=== PATIENT | female | born 1950 | race Caucasian/White ===

== ENCOUNTER → 2016-10-30 | Outpatient (CLI) | payer OTHER, MEDICARE ==
[~2016-10-30] MED LIST: ALBU4TAB10 PO; ASPI81TA28 PO; ATOR-22 PO; CALCTAB7 PO
--- NOTE | 2016-10-30 16:20 | DIAGNOSTIC IMAGING REPORT ---
LYMPHOSCINTIGRAPHY CLINICAL HISTORY: Left breast cancer. PROCEDURE: Using standard sterile technique, 4 intradermal injections medial to the nipple and one deep injection of 0.5 mCi of Lymphoseek was placed in the left breast. The patient tolerated the procedure well. There were no immediate complications. The patient will undergo surgery tomorrow at [facility]. No imaging was obtained at the referring physician's request. IMPRESSION: Injection of 0.5 mCi of Lymphoseek in the left breast. Electronically signed by: Vikas Guzman M.D. 10/30/2016 4:19 PM Dictated Date/Time: 10/30/2016 4:18 PM
== END | disposition home or self-care (01) ==
LOC: C.NUCL 13:07
PROVIDERS: ATTEND Surgery
DX: C50.912 Malignant neoplasm of unspecified site of left female breast (principal)

== ENCOUNTER → 2017-03-26 | Outpatient (CLI) | payer OTHER, MEDICARE ==
[2017-03-26 15:13] VITALS: BP 113/61; PULSE 77; TEMP 36.7; O2SAT 95
--- NOTE | 2017-03-26 16:35 | Radiation Oncology Follow-Up ---
Radiation Oncology Follow-Up Date of Visit Mar 26, 2017. (Celia Pizano PA-C) Reason For Visit One-month follow-up in cancer survivorship care plan (Celia Pizano PA-C) Radiation Completion Date 02/25/17 (Celia Pizano PA-C) Diagnosis (1) Breast cancer Status: Acute Onset Date: 09/23/2016 Histology Subtype: ductal Stage: l (A) Permanent Comment: Abnormal left breast mammogram 09-10-2016 Status post stereotactic biopsy 09/23/2016 revealing ductal carcinoma grade 1 Estrogen receptor positive, progesterone receptor positive, HER-2/miranda negative Status post lumpectomy and sentinel lymph node biopsy 10/25/2016 Lesion was removed at the time of biopsy, 1.6 mm Stage pTIa pN0 M0 G1 BRCA analysis negative Status post completion of radiation therapy 02/25/2017 received 4272 cGy She declined adjuvant hormonal therapy Last Edited By: Celia Pizano on Mar 26, 2017 16:34 (Celia Pizano PA-C) History of Present Illness Ms. Cramer is a 66-year-old female who was previously diagnosed with right breast cancer in 1999 and treated with a lumpectomy, adjuvant radiation therapy (Dr. Power, [place], [place]), adjuvant chemotherapy and tamoxifen. The patient has done well with no evidence of recurrence. The patient underwent bilateral diagnostic mammograms on 09/10/2016 which revealed a 5 mm mass in the medial left breast suspicious for malignancy; ultrasonography confirmed the lesion to measure 5 mm. The patient underwent a stereotactic biopsy of the left breast mass on 09/23/2016 which confirmed infiltrate ductal carcinoma that was grade 1 and was estrogen receptor positive, progesterone receptor positive and HER-2 negative. The patient underwent a left breast lumpectomy and sentinel lymph node biopsy by Dr. Valenzuela on 10/31/2016 which did not reveal any residual carcinoma and only revealed the biopsy site and clip; the pathology report did review the initial size of the biopsy (September 2016) from the previous report and measured to be 1.6 mm. 1 sentinel lymph nodes was removed and was negative for metastatic carcinoma. The patient was referred to Dr. Fransisco Mensah for medical oncology who recommended consideration of anti-hormonal therapy as well as adjuvant radiation therapy. We are now seeing the patient in consultation discuss the role of radiation therapy. Overall, the patient doing relatively well. She has no complaints at this point. She underwent a CT simulation and was found to be a candidate for hypo- fractionated therapy. Radiation was completed on 02/25/2017. She received 4272 cGy. (Celia Pizano PA-C) Interim History She's been doing well over this past month. The irritation of the skin has steadily improved. She does continue to have some dark discoloration of the skin. She denies any pain or tenderness. She has noted no masses. There is been no masses noted of the axilla. She's had no swelling of her arm. Follow- up mammography will be performed in [place]. She'll be seeing Dr. Valenzuela on April 20. She has seen Dr. Mensah. She discussed adjuvant hormonal therapy with him. They discussed potential side effects and toxicities. She made decision that she did not want to take hormonal therapy. She is doing well with the smoke cessation. She is down to 5 cigarettes per day. She is steadily weaning off of cigarettes. She has a history of an aortic valve abnormality. She stated that her margin analyst recommends the valve be replaced at some point in time. He has also strongly encouraged her to stop smoking. (Celia Pizano PA-C) Allergies Coded Allergies: Penicillins (Verified Allergy, Severe, RASH, 01/21/17) Home Medications Scheduled Aspirin (Aspirin Ec), 81 MG PO DAILY Atorvastatin (Lipitor), 1 TAB PO DAILY Calcium Carbonate-Vitamin D W/ (Caltrate 600 Plus), 2 TAB PO DAILY Scheduled PRN Albuterol (Ventolin), 4 MG PO Q4 PRN for Shortness of Breath Review of Systems Gastrointestinal: Symptoms: WNL Oral: Symptoms: No Problems Respiratory: Symptoms: WNL Other Respiratory: Cough due to allergy per PCP Urinary: Symptoms: WNL Skin: Symptoms: No Problems Breast: Right Upper Arm Measurement: 29.9 Right Mid Arm Measurement: 24.9 Right Wrist Measurement: 16.2 Left Upper Arm Measurement: 29.5 Left Mid Arm Measurement: 25.8 Left Wrist Measurement: 16.0 Arm Dominence: Right Additional Notes: She completed a distress management report and answered "no" to all questions (Celia Pizano PA-C) Physical Exam Vital Signs Date Time Temp Pulse Resp B/P (MAP) Pulse Ox O2 Delivery O2 Flow Rate FiO2 03/26/17 15:13 36.7 77 16 113/61 95 Fatigue: None General Appearance: no apparent distress Eyes: normal inspection, EOMI ENT: normal ENT inspection, hearing grossly normal Neck: no adenopathy, thyroid normal Respiratory/Chest: lungs clear, no respiratory distress, no accessory muscle use Breast: Breast examination reveals well-healed incisions of the left breast. There is resolving hyperpigmentation. There is mild dry desquamation at the nipple. There are no areas of wet desquamation. There are no masses or tenderness and no adenopathy. She has no skin retractions. Using the [place] score cosmesis she currently has a fair outcome. The right breast showed no masses or tenderness and no axillary adenopathy. Cardiovascular: regular rate, rhythm, no gallop, + systolic murmur (3/6 systolic murmur heard best at the aortic area) Abdomen: non tender, soft Extremities: no pedal edema Neurologic/Psychiatric: no motor/sensory deficits, alert, normal mood/affect Skin: warm/dry Lymphatic: no adenopathy (Celia Pizano PA-C) Assessment & Plan Plan: The patient was also seen and examined by Dr. Mari. She'll continue Aquaphor for the areas of dry desquamation. She has an appointment with Dr. Valenzuela April 20. We'll defer the scheduling of her mammograms to his office. She has her mammograms in [place]. She'll continue follow-up with her margin analyst. She'll continue to wean down off of cigarettes. We asked her to return to our office in 6 months. Today we completed a cancer survivorship care plan. A copy of the document was given to the patient. She may call our office if she has any questions or concerns in the interim. (Celia Pizano PA-C) I agree with note created by Celia Pizano PA-C. I reviewed the patient's chart and information with her. I have examined and evaluated the patient. I reviewed relevant clinical information and answered the patient's and/or family' s questions. (Veeral. Mari MD) Total Time In Follow-Up I spent 20 minutes speaking to the patient performing examination. I spent 20 minutes reviewing information, preparing a survivorship document, and completing this note. (Celia Pizano PA-C) I spent 15 minutes examining and counseling the patient. (Veeral. Mari MD) Copy To Armen Valenzuela M.D.; Corrine Feliz M.D.; Fransisco Mensah MD Problem Qualifiers (1) Breast cancer: Breast location: lower inner quadrant of breast Estrogen receptor status: positive Patient sex: female Laterality: left Qualified Codes: C50.312 - Malignant neoplasm of lower-inner quadrant of left female breast; Z17.0 - Estrogen receptor positive status [ER+]
== END | disposition home or self-care (01) ==
LOC: C.ONC 14:45
PROVIDERS: ATTEND Physician Assistant Medical
DX: Z08 Encounter for follow-up examination after completed treatment for malignant neoplasm (principal); Z92.3 Personal history of irradiation; Z85.3 Personal history of malignant neoplasm of breast

== ENCOUNTER → 2017-10-13 | Outpatient (CLI) | payer OTHER, MEDICARE ==
[~2017-10-13] MED LIST changes: +FRS/40 PO; +FURO20TA PO; +METO25TA3 PO; +MGNG500 PO
[2017-10-13 15:15] VITALS: BP 135/78; PULSE 77; TEMP 36.8; O2SAT 95
--- NOTE | 2017-10-13 16:31 | Radiation Oncology Follow-Up ---
Radiation Oncology Follow-Up Date of Visit Oct 13, 2017. Reason For Visit 6 month follow-up Radiation Completion Date 02/25/17 Diagnosis (1) Breast cancer Status: Resolved Onset Date: 09/23/2016 Histology Subtype: ductal Stage: l (A) Permanent Comment: Abnormal left breast mammogram 09-10-2016 Status post stereotactic biopsy 09/23/2016 revealing ductal carcinoma grade 1 Estrogen receptor positive, progesterone receptor positive, HER-2/miranda negative Status post lumpectomy and sentinel lymph node biopsy 10/25/2016 Lesion was removed at the time of biopsy, 1.6 mm Stage pTIa pN0 M0 G1 BRCA analysis negative Status post completion of radiation therapy 02/25/2017 received 4272 cGy She declined adjuvant hormonal therapy Last Edited By: Celia Pizano on Mar 26, 2017 16:34 History of Present Illness Ms. Cramer was previously diagnosed with right breast cancer in 1999 and treated with a lumpectomy, adjuvant radiation therapy (Dr. Power, [place], [place]), adjuvant chemotherapy and tamoxifen. The patient has done well with no evidence of recurrence. The patient underwent bilateral diagnostic mammograms on 09/10/2016 which revealed a 5 mm mass in the medial left breast suspicious for malignancy; ultrasonography confirmed the lesion to measure 5 mm. The patient underwent a stereotactic biopsy of the left breast mass on 09/23/2016 which confirmed infiltrate ductal carcinoma that was grade 1 and was estrogen receptor positive, progesterone receptor positive and HER-2 negative. The patient underwent a left breast lumpectomy and sentinel lymph node biopsy by Dr. Valenzuela on 10/31/2016 which did not reveal any residual carcinoma and only revealed the biopsy site and clip; the pathology report did review the initial size of the biopsy (September 2016) from the previous report and measured to be 1.6 mm. 1 sentinel lymph nodes was removed and was negative for metastatic carcinoma. The patient was referred to Dr. Fransisco Mensah for medical oncology who recommended consideration of anti-hormonal therapy as well as adjuvant radiation therapy. We are now seeing the patient in consultation discuss the role of radiation therapy. Overall, the patient doing relatively well. She has no complaints at this point. She underwent a CT simulation and was found to be a candidate for hypo- fractionated therapy. Radiation was completed on 02/25/2017. She received 4272 cGy. Interim History She's been doing well over the past 6 months. She has noticed no changes to her breast. She is noted no masses or tenderness no change of the axilla. She denies any swelling of the arm. She is up-to-date on mammography. She had a mammogram in [place] on 10/01/2017. This was stable. There treatment changes and no evidence of breast malignancy. Recheck mammogram was recommended for 12 months. BI-RADS Category 2. She underwent an aortic valve replacement on 06/03/2017. Since been followed and she was referred and underwent surgery at [facility]. She had a uneventful postoperative period and she is been steadily improving. She has noted increased energy levels. She also was having shortness of breath and this is now resolved. Allergies Coded Allergies: Penicillins (Verified Allergy, Severe, RASH, 01/21/17) Home Medications Scheduled Aspirin (Aspirin Ec), 81 MG PO DAILY Atorvastatin (Lipitor), 1 TAB PO DAILY Calcium Carbonate-Vitamin D W/ (Caltrate 600 Plus), 2 TAB PO DAILY Furosemide (Lasix), 40 MG PO DAILY Magnesium Gluconate (Mag-G), 2 TAB PO DAILY Metoprolol Succinate (Toprol Xl), 1 TAB PO DAILY Scheduled PRN Albuterol (Ventolin), 4 MG PO Q4 PRN for Shortness of Breath Review of Systems Gastrointestinal: Symptoms: WNL Oral: Symptoms: No Problems Respiratory: Symptoms: WNL Other Respiratory: Patient currently has dry cough - getting over a "head cold" Urinary: Symptoms: WNL Skin: Symptoms: No Problems Other Skin Symptoms: "Discolored" 16.2 Breast: Right Upper Arm Measurement: 30.1 Right Mid Arm Measurement: 26.0 Right Wrist Measurement: 15.9 Left Upper Arm Measurement: 30.5 Left Mid Arm Measurement: 26.9 Left Wrist Measurement: 16.2 Arm Dominence: Right Physical Exam Vital Signs Date Time Temp Pulse Resp B/P (MAP) Pulse Ox O2 Delivery O2 Flow Rate FiO2 10/13/17 15:15 36.8 77 16 135/78 95 Fatigue: None General Appearance: no apparent distress Eyes: normal inspection, EOMI ENT: normal ENT inspection, hearing grossly normal Neck: no adenopathy, thyroid normal Respiratory/Chest: lungs clear, no respiratory distress, no accessory muscle use, + pertinent finding (well-healed midline chest incision) Breast: Breast examination reveals well-healed incisions of the left breast. There are no masses or tenderness and no axillary adenopathy. She has no skin retractions or nipple changes. Using the [place] score cosmesis she has a good outcome. The right breast showed no masses or tenderness and no axillary adenopathy. Cardiovascular: regular rate, rhythm, no gallop, no murmur Extremities: no pedal edema Neurologic/Psychiatric: no motor/sensory deficits, alert, normal mood/affect Skin: warm/dry Pain Management Patient Reports Pain: No Pain Management Plan She denies pain therefore requires no pain management. Laboratory Laboratory Results: not applicable Pathology Pathology Results: not applicable Imaging Imaging Studies: were reviewed, not applicable Imaging Comments Reviewed in the interim history. Assessment & Plan Plan: The patient was seen and examined by Dr. Mari.Continue with annual mammography. Continue follow-up with Dr. Mensah and her primary care physician. We asked her to return to our office in 1 year. She may call if she has any questions or concerns in the interim. Assessment & Plan (Attending) ADDENDUM: I agree with note created by Celia Pizano PA-C. I reviewed the patient's chart and information with her. I have examined and evaluated the patient. I reviewed relevant clinical information and answered the patient's and /or family's questions. NURSING PROGRAM CHAIR Total Time In Follow-Up I spent 20 minutes speaking to the patient performing examination. I spent 15 minutes reviewing information and completeness note. [place] Total Time (Attending) In Follow-Up I spent 15 minutes examining and counseling the patient. NURSING PROGRAM CHAIR Copy To Corrine Feliz M.D.; Fransisco Mensah MD Problem Qualifiers (1) Breast cancer: Breast location: lower inner quadrant of breast Estrogen receptor status: positive Patient sex: female Laterality: left Qualified Codes: C50.312 - Malignant neoplasm of lower-inner quadrant of left female breast; Z17.0 - Estrogen receptor positive status [ER+]
== END | disposition home or self-care (01) ==
LOC: C.ONC 14:53
PROVIDERS: ATTEND Physician Assistant Medical
DX: Z08 Encounter for follow-up examination after completed treatment for malignant neoplasm (principal); Z92.3 Personal history of irradiation; Z85.3 Personal history of malignant neoplasm of breast